=== PATIENT | female | born 1995 | race Caucasian/White ===

== ENCOUNTER 2018-10-02 13:43 | Observation (INO) | payer OTHER ==
[2018-10-02 15:04] LABS: ABS Basophils 0.1 10^3/ul (0-0.2); ABS Eosinophils 0.2 10^3/ul (0-0.6); ABS Lymphocytes 2.8 10^3/ul (1.0-4.8); ABS Neutrophils 8.3 10^3/ul (1.5-7.7); Eosinophil % 1.6 %; Hematocrit 34 % (35-47); Hemoglobin 11.7 g/dL (12.0-16.0); Lymphocyte % 22.6 %; Mean Corpuscular HGB Conc 35 g/dL (31-36); Mean Corpuscular Hemoglobin 31 pg (27-31); Mean Corpuscular Volume 91 fL (80-97); Mean Platelet Volume 8.5 fL (7.4-10.4); Platelet Count 207 10^3/uL (150-450); Red Blood Count 3.72 10^6 /uL (3.70-4.87); Red Cell Distribution Width 13 % (10-15); White Blood Count 12.3 10^3/uL (3.5-10.8)
[2018-10-02 15:22] LABS: Albumin 3.6 g/dL (3.2-5.2); Albumin/Globulin Ratio 1.4 (1-3); BUN/Creatinine Ratio 11.4 (8-20); Calcium 8.8 mg/dL (8.6-10.3); EGFR African American 95.5 (>60); EGFR Non-African American 78.9 (>60); Globulin 2.5 g/dL (2-4); Potassium 4.5 mmol/L (3.5-5.0); Total Bilirubin 0.3 mg/dL (0.2-1.0); Total Protein 6.1 g/dL (6.4-8.9)
[2018-10-02] MEDS ORDERED: NS 0.9% 1000 ML** 1,000 ML IV ONE (15:30)
[2018-10-02 16:43] LABS: TSH (Thyroid Stimulating Horm) 3.46 mcIU/mL (0.34-5.60)
--- NOTE | 2018-10-02 17:14 | ED ---
Syncope/Near Syncope - HPI Summary HPI Summary: Patient is a 22-year-old female presenting to the ED from the [facility] with a syncopal episode. Patient states over the past 2 weeks, she has been experiencing dizziness and weakness. Since that time, the [facility] has been checking her blood pressure and heart rate, both of which have been persistently low daily. She is currently on gabapentin, Suboxone 8mg, citalopram, guanfacine, NAC, Zisperidone, hydroxyzine, trazodone and buspar. She states she's been on several of these medications for years and a few the medications, she began only 4 months ago, with NAC starting 1 mos ago. He states she's never had side effects of her medications. She denies any abdominal pain, chest pain, shortness of breath. Denies any cardiac history. She does have a history of bipolar disorder, depression and insomnia. 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 She states she has been clean for "almost one month." She denies any alcohol use. She states over the past 2 weeks she has felt as though she was about to syncopize, with dizziness and fatigue, however the center refused to send her to the ED or change her medications. - History Of Current Complaint Chief Complaint: EDDizziness Time Seen by Provider: 10/02/18 13:51 Hx Obtained From: Patient Onset/Duration: Gradual Onset Timing: Constant Associated Head Trauma: No Aggravating Factor(s): Nothing Alleviating Factor(s): Nothing - Risk Factors Cardiac Risk Factors: Negative Dysrhythmia Risk Factors: Negative Risk Factor(s): Negative - Allergies/Home Medications Allergies/Adverse Reactions: Allergies Allergy/AdvReac Type Severity Reaction Status Date / Time lamotrigine [From Lamictal] Allergy Hives Verified 10/02/18 13:57 PMH/Surg Hx/FS Hx/Imm Hx Previously Healthy: Yes - Immunization History Hx Pertussis Vaccination: No Immunizations Up to Date: Yes Infectious Disease History: No Infectious Disease History: Denies: Traveled Outside the [place] in Last 30 Days - Social History Occupation: Unemployed Lives: Alone - at treatment center Alcohol Use: None Hx Substance Use: No Substance Use Type: Reports: None Substance Use Comment - Amount & Last Used: in rehabb Hx Tobacco Use: Yes Smoking Status (MU): Former Smoker Review of Systems Positive: Fatigue. Negative: Fever, Chills, Skin Diaphoresis Negative: Palpitations, Chest Pain Negative: Shortness Of Breath, Cough Positive: no symptoms reported, see HPI Negative: Rash, Bruising Positive: Weakness, Syncope Psychological: Normal All Other Systems Reviewed And Are Negative: Yes Physical Exam - Summary Physical Exam Summary: Patient appears very fatigued and is difficult to arouse. Once aroused, patient is able to answer questions appropriately, however mid sentence, patient will follow asleep and will need to be re-aroused. Patient is pleasant. Triage Information Reviewed: Yes Vital Signs On Initial Exam: Initial Vitals Temp Pulse Resp BP Pulse Ox 98.1 F 43 16 96/50 97 10/02/18 13:49 10/02/18 13:49 10/02/18 13:49 10/02/18 13:49 10/02/18 13:49 Vital Signs Reviewed: Yes Appearance: Positive: Well-Appearing, Well-Nourished Skin: Positive: Warm, Skin Color Reflects Adequate Perfusion Head/Face: Positive: Normal Head/Face Inspection Eyes: Positive: EOMI, Conjunctiva Clear Neck: Positive: Supple, No Lymphadenopathy Respiratory/Lung Sounds: Positive: Clear to Auscultation, Breath Sounds Present Cardiovascular: Positive: RRR, Pulses are Symmetrical in both Upper and Lower Extremities Musculoskeletal: Positive: Normal Neurological: Positive: Sensory/Motor Intact, Speech Normal Psychiatric: Positive: Affect/Mood Appropriate AVPU Assessment: Alert Diagnostics - Vital Signs Vital Signs Temp Pulse Resp BP Pulse Ox 10/02/18 16:51 47 10 113/61 95 10/02/18 16:39 47 13 98/62 95 10/02/18 16:00 46 15 96 10/02/18 15:52 52 12 103/54 95 10/02/18 15:22 12 108/62 10/02/18 15:00 42 10 94 10/02/18 14:52 42 12 119/67 93 10/02/18 14:30 10 10/02/18 14:29 41 16 10/02/18 14:22 10 113/56 10/02/18 13:49 98.1 F 43 16 96/50 97 - Laboratory Lab Results: Lab Results 10/02/18 10/02/18 10/02/18 Range/Units 14:44 14:44 14:44 WBC 12.3 H (3.5-10.8) 10^3/uL RBC 3.72 (3.70-4.87) 10^6 /uL Hgb 11.7 L (12.0-16.0) g/dL Hct 34 L (35-47) % MCV 91 (80-97) fL MCH 31 (27-31) pg MCHC 35 (31-36) g/dL RDW 13 (10-15) % Plt Count 207 (150-450) 10^3/uL MPV 8.5 (7.4-10.4) fL Neut % (Auto) 67.2 % Lymph % (Auto) 22.6 % [place] % (Auto) 8.0 % Eos % (Auto) 1.6 % Baso % (Auto) 0.6 % Absolute Neuts (auto) 8.3 H (1.5-7.7) 10^3/ul Absolute Lymphs (auto) 2.8 (1.0-4.8) 10^3/ul Absolute Monos (auto) 1.0 H (0-0.8) 10^3/ul Absolute Eos (auto) 0.2 (0-0.6) 10^3/ul Absolute Basos (auto) 0.1 (0-0.2) 10^3/ul Absolute Nucleated RBC 0.0 10^3/ul Nucleated RBC % 0.0 Sodium 141 (135-145) mmol/L Potassium 4.5 (3.5-5.0) mmol/L Chloride 110 (101-111) mmol/L Carbon Dioxide 25 (22-32) mmol/L Anion Gap 6 (2-11) mmol/L BUN 10 (6-24) mg/dL Creatinine 0.88 (0.51-0.95) mg/dL Est GFR ( Amer) 95.5 (>60) Est GFR (Non-Af Amer) 78.9 (>60) BUN/Creatinine Ratio 11.4 (8-20) Glucose 99 (70-100) mg/dL Lactic Acid 0.9 (0.5-2.0) mmol/L Calcium 8.8 (8.6-10.3) mg/dL Magnesium 2.0 (1.9-2.7) mg/dL Total Bilirubin 0.30 (0.2-1.0) mg/dL AST 16 (13-39) U/L ALT 17 (7-52) U/L Alkaline Phosphatase 42 (34-104) U/L Troponin I 0.00 (<0.04) ng/mL Total Protein 6.1 L (6.4-8.9) g/dL Albumin 3.6 (3.2-5.2) g/dL Globulin 2.5 (2-4) g/dL Albumin/Globulin Ratio 1.4 (1-3) TSH 3.46 (0.34-5.60) mcIU/mL Result Diagrams: 10/02/18 14:44 10/02/18 14:44 Lab Statement: Any lab studies that have been ordered have been reviewed, and results considered in the medical decision making process. Course/Dx Course Of Treatment: During this course of treatment, the patient's evaluated for syncopal episode and fatigue over the past 2 weeks. Her syncopal episode was just today, however she has been feeling weak and dizzy over the past 2 weeks. She believes this has to do with her medications, but is unsure. She denies any cardiac symptoms including chest pain or shortness of breath. EKG obtained which shows sinus bradycardia at 40. This was rechecked with another EKG which was at 40 bpm. Pressures are soft, but not as low as they have been documented over the past 2 weeks at the [facility]. Troponin 0.00. Chest x-ray shows a possible lingual consolidation. Patient states she has been afebrile, no sweats or chills, no nausea or vomiting. Discussed case with Dr. Lechuga who agrees to admit for further evaluation of her medication list and symptoms. - Diagnoses Differential Diagnosis/HQI/PQRI: Positive: Other - Medication reaction, overdose Provider Diagnoses: Syncope, Fatigue, Weakness, Hypotension - Physician Notifications Discussed Care of Patient With: Zackery Lechuga Instructed by Provider To: Admit As Inpatient Discharge - Sign-Out/Discharge Documenting (check all that apply): Patient Departure Patient Received Moderate/Deep Sedation with Procedure: No - Discharge Plan Condition: Good Disposition: ADMITTED TO [facility] Referrals: No Primary Care Phys,NOPCP [Primary Care Provider] - - Billing Disposition and Condition Condition: GOOD Disposition: Admitted to [facility]
[2018-10-02] MEDS ORDERED: Al Hydrox/Mg Hydrox/Simet LIQ* 30 ML UDC PO PRN (17:43)
[2018-10-02] MEDS ORDERED: Magnesium Hydroxide LIQ* 30 ML UDC PO PRN (17:43)
[2018-10-02] MEDS ORDERED: Acetaminophen TAB* 325 MG PO PRN (17:43)
[2018-10-02] MEDS ORDERED: Magnesium CITRATE* 300 ML BTL PO PRN (17:53)
[2018-10-02] MEDS ORDERED: Ibuprofen TAB* 400 MG PO PRN (17:53)
[2018-10-02] MEDS ORDERED: hydrOXYzine HCL TAB* 25 MG PO PRN (17:53)
[2018-10-02 18:16] LABS: Urine Appearance Clear; Urine Bacteria Absent (Absent); Urine Bilirubin Negative (Negative); Urine Blood Negative (Negative); Urine Color Yellow; Urine Glucose Negative (Negative); Urine Ketones Negative (Negative); Urine Nitrite Negative (Negative); Urine Protein Negative (Negative); Urine Red Blood Cell Trace(0-2/hpf) (Absent); Urine Specific Gravity 1.006 (1.010-1.030); Urine Squamous Epithelial Cell Present (Absent); Urine Urobilinogen Negative (Negative); Urine White Blood Cell Trace(0-5/hpf) (Absent)
[2018-10-02 18:34] LABS: Urine Benzodiazepine Screen None Detected (None Detect); Urine Opiates Screen None Detected (None Detect)
--- NOTE | 2018-10-02 20:03 | HP ---
ADDENDUM NOW INCLUDED ON THIS REPORT HISTORY AND PHYSICAL: DATE OF ADMISSION: 10/02/18 PRIMARY CARE PROVIDER: The patient currently has no primary care provider, but is receiving care at [facility]. ATTENDING PHYSICIAN: Dr. Maribell Pinon * (dictated by Artem Perkins, FLAQUITA). CHIEF COMPLAINT: 1. Syncope. 2. Hypotension. 3. Bradycardia. HISTORY OF PRESENT ILLNESS: Ms. Oglesby is a 22-year-old female with a past medical history significant for substance abuse, who presented to the emergency department today after a syncopal episode at [facility]. The patient reports that for approximately 2 weeks her providers at [facility] and her prior [facility] had been noting low BPs. She said around the same time she started to feel increasing nausea, sleepiness, and hunger. The patient reports that the symptoms have gradually worsened since their onset and culminated today with a full syncopal episode. The patient reports she has had multiple near syncopal episodes prior to today's syncopal episode. It should be noted that the patient was in the [facility] for approximately 1 week prior to being transferred to [facility], where she has been for 9 to 10 days. The patient reports that she was in her normal state of health until about a week and a half ago when these symptoms started. The patient reports that she has had no fevers, decrease in appetite, chest pain, edema, cough, shortness of breath, diarrhea, abdominal pain, dysuria, hematuria, URI symptoms , arthralgias or myalgias, rashes or lesions. She reports that she has had headaches during near syncopal episode. In addition, she has generalized weakness and visual clouding when changing positions, once again when she is having near syncopal episode. The patient attributes all these symptoms to the start of several new medications, which were started when she was transferred to [facility]. Specifically, the patient was started on Mucomyst, Tenex, clonidine approximately 9 days ago. She reports she was having lower BPs; therefore, they started midodrine and salt tabs. When asked why they started Intuniv in addition to her other medications, she was unsure. When asked why they started clonidine, she reports that she asked for trazodone as that is what she normally takes, but the provider ordered trazodone and clonidine. She reports that midodrine and salt tabs were given approximately 5 days ago when she was having some low BPs. While here in the emergency room, the patient has had EKGs, which have revealed sinus bradycardia in the 40s. The patient has also had some hypotension with a systolic as low as 96. The patient has been visibly drowsy. The patient has had labs, which have been fairly unremarkable except for a slightly elevated WBC at 12.3 and a slightly low H and H at 11.7 and 34. Given the patient's symptomatic bradycardia and hypotension, the hospitalists were asked to consult for admission. PAST MEDICAL HISTORY: Substance abuse. PAST SURGICAL HISTORY: None. HOME MEDICATIONS: 1. Tenex 1 mg p.o. daily, started approximately 9 days ago. 2. Acetylcysteine (NAC) 600 mg p.o. 4 times daily, started approximately 9 days ago. 3. BuSpar 30 mg p.o. b.i.d., started in April 2018. 4. Geodon 40 mg p.o. daily, started in April 2018. 5. Trazodone 100 mg at bedtime, started in April 2018. 6. Suboxone 2 mg/0.5 mg sublingual tab, 3 films sublingual daily, started approximately 2 months ago. 7. Nicotine patch 20 mg/24 hours, 1 patch transdermally daily. 8. Multivitamin. 9. Mag citrate 300 mg p.o. daily p.r.n. 10. Clonidine 0.1 mg p.o. b.i.d. p.r.n., started approximately 9 days ago. 11. Hydroxyzine 50 mg p.o. 4 times daily p.r.n., started in April 2018. 12. Melatonin 1 to 4 tabs p.o. q.p.m. p.r.n., unknown start date. 13. Ibuprofen 400 mg p.o. q.4 hours p.r.n. 14. Tylenol 650 mg p.o. q.4 hours p.r.n. 15. Sodium chloride tabs 0.5 g p.o. t.i.d., started 5 days ago. 16. Debrox 6.5% otic 3 drops both ears q.p.m. 17. Midodrine 2.5 mg p.o. t.i.d., started 5 days ago. 18. Celexa 40 mg p.o. daily, started in April 2018. 19. Gabapentin 300 mg p.o. b.i.d., started in April 2018. ALLERGIES: LAMOTRIGINE. FAMILY HISTORY: The patient reports her family is healthy with the exception of her grandmother, who had diabetes and cardiac bypass surgery. She denies family history of cancer. SOCIAL HISTORY: The patient is a former smoker. She quit approximately 1 month ago. The patient does not drink alcohol. The patient has a history of substance abuse, specifically meth, cocaine, and heroin. The patient reports she has been clean for 25 days. The patient currently lives at [facility]. The patient is not . The patient has 1 child. REVIEW OF SYSTEMS: A 14-point review of systems was performed and all pertinent positive findings are in the HPI. All others were negative. PHYSICAL EXAMINATION GENERAL: Ms. Oglesby is a 22-year-old female, who is lying in bed. Appears to be in no acute distress. Appears stated age. VITAL SIGNS: Temp 98.1, HR 46, RR 11, O2 saturation 97% on room air, BP 112/71. HEENT: EOMs intact. PERRLA. Oral mucosa is moist without lesions. Posterior pharynx is clear. NECK: Supple. No lymphadenopathy. RESPIRATORY: Symmetrical chest expansion. No accessory muscle use. Lungs are clear to auscultation. No rhonchi, wheezes, or rales. CARDIAC: Irregular rate and rhythm. S1, S2 present. No murmurs, rubs, or gallops. ABDOMEN: Soft, nontender. Bowel sounds normoactive. EXTREMITIES: Skin is warm and smooth bilaterally. No edema. No clubbing or cyanosis. Pedal pulses 2+ bilaterally. MUSCULOSKELETAL: Full range of motion. No pain or deformities. NEURO: The patient is awake, alert, and oriented x4. Cranial nerves II through XII are grossly intact. Motor strength is 5/5 in the upper and lower extremities. SKIN: Grossly intact without lesions. DIAGNOSTIC STUDIES/LAB DATA: WBC 12.3, hemoglobin 11.7, hematocrit 34, platelets 207. Sodium 141, potassium 4.5, chloride 110, carbon dioxide 25, BUN 10, creatinine 0.88, lactic acid 0.9, magnesium 2.0. TSH 3.46. Chest x-ray, impression: Question linear infiltrate. There is likely dermal piercing left breast. EKG, impression: Sinus maxim. Rate 47. No ST changes. ASSESSMENT AND PLAN: Ms. Oglesby is a 22-year-old female with past medical history significant for substance abuse, who presented to the emergency department today with complaints of syncope and was found to be bradycardic and hypotensive. The patient will be placed on observation. 1. Syncope. On the differential includes dehydration, infection, cardiac in origin, polypharmacy. The patient does not appear dehydrated based on her labs and assessment. The patient does have little elevated white count at 12.3, but her chest x-ray is fairly unremarkable and we are awaiting urinalysis. She has no urinary symptoms. The patient has no cardiac history and has an EKG that revealed sinus bradycardia with no ST changes. She has had initial trop of 0.00 here in the emergency room. Cardiac origin is lower in my suspicion, but if the patient's symptoms continue, I would recommend an echocardiogram and further cardiology evaluation. Polypharmacy is higher on the differential as the patient was started on multiple medications 9 days ago and started having symptoms and was later placed on additional medications to treat those symptoms. Given this, I am going to hold all medications started within the past 2-week period and monitor the patient accordingly. That includes holding acetylcysteine, Tenex, clonidine, midodrine, salt tabs. 2. Bradycardia. Once again, I suspect the patient's bradycardia is secondary to medications as these symptoms started shortly after new medications were initiated. These medications have been held. If the patient's symptoms continue , I would recommend further cardiac evaluation. The patient will be placed on tele. The patient will have repeat EKG in the morning. 3. Substance abuse. The patient has a history of meth, cocaine, heroin use. The patient has been clean for 25 days. We will continue the patient's Suboxone. I am holding the patient's acetylcysteine even though this has been prescribed to prevent cocaine relapse. I am holding this medication as it is one of the new medications that she has been placed on that carries a potential side effect of hypotension. At discharge, the patient can return to [facility]. 4. FEN: The patient has been placed on a regular diet. Given her hypotension and bradycardia, I have also continued IV fluid hydration in the form of normal saline. 5. Code status: The patient is a full code. 6. DVT prophylaxis: Based on the patient's DVT Risk Assessment, she is low risk. I have ordered ambulation 4 times daily and sequential compression devices. TIME SPENT: Approximately 65 minutes was spent on this admission, greater than half the time was spent with the patient obtaining my history, performing physical exam, and reviewing my plan of care. The case has been reviewed with my attending, Dr. Pinon, who is in agreement with my plan of care. ARTEM PERKINS NP ADDENDUM: It should also be mentioned that I have decreased the patient's trazodone from 100 mg p.o. at bedtime to 50 mg p.o. at bedtime, and the patient's hydroxyzine from 50 mg p.o. 4 times a day p.r.n. to 25 mg b.i.d. p.r.n. ARTEM PERKINS NP [id number]/CPS #: [id number] [id number]/CPS #: [id number] JOHN
--- NOTE | 2018-10-02 20:11 | HP ---
HISTORY AND PHYSICAL: ADDENDUM: It should also be mentioned that I have decreased the patient's trazodone from 100 mg p.o. at bedtime to 50 mg p.o. at bedtime, and the patient' s hydroxyzine from 50 mg p.o. 4 times a day p.r.n. to 25 mg b.i.d. p.r.n. ARTEM PERKINS, MACHINE [employer]LECTRICIAN [id number]/[facility] #: [id number] [facility]
[2018-10-02] MEDS: Nicotine Patch Removal NOTE PATCH OFF SCH (21:44)
[2018-10-02] MEDS: traZODone TAB* 50 MG TAB PO SCH (21:44)
[2018-10-02] MEDS: Gabapentin CAP(*) 300 MG PO SCH (21:44)
[2018-10-02] MEDS: busPIRone TAB* 15 MG PO SCH (21:44)
[2018-10-02] MEDS: NS 0.9% 1000 ML** 1,000 ML IV SCH (21:45)
[2018-10-03] MEDS: Nicotine PATCH 21 MG/24 HR* PATCH TRANSDERM SCH (07:36)
[2018-10-03] MEDS: Citalopram TAB* 40 MG PO SCH (07:36)
[2018-10-03] MEDS: Buprenorp/Nalox 2-0.5 MG SL TAB SL SCH (07:36)
[2018-10-03] MEDS: busPIRone TAB* 15 MG PO SCH ×2 (07:36→20:03)
[2018-10-03] MEDS: Gabapentin CAP(*) 300 MG PO SCH ×2 (07:36→20:01)
[2018-10-03] MEDS: Prenatal Vitamin TAB PO SCH (07:36)
[2018-10-03] MEDS: NS 0.9% 1000 ML** 1,000 ML IV SCH ×2 (07:45→18:38)
--- NOTE | 2018-10-03 11:26 | PN ---
Subjective Date of Service: 10/03/18 Interval History: Patient seen and examined. Requested shower this am. BP with slow improvement, no dizziness noted today. HR remains bradycardic but also improved. Denies headache, no dizziness, no SOB, no syncope since admission. Objective Active Medications: Acetaminophen (Tylenol Tab*) 650 mg PO Q4H PRN PRN Reason: FEVER/PAIN Al Hydrox/Mg Hydrox/Simethicone (Maalox Plus*) 30 ml PO Q6H PRN PRN Reason: INDIGESTION Buprenorphine/Naloxone (Suboxone 2-0.5 Mg Sl Tab*) 3 each SL DAILY [facility] Last Admin: 10/03/18 07:36 Dose: 3 each Buspirone HCl (Buspar Tab *) 30 mg PO BID [facility] Last Admin: 10/03/18 07:36 Dose: 30 mg Citalopram Hydrobromide (Celexa Tab*) 40 mg PO DAILY [facility] Last Admin: 10/03/18 07:36 Dose: 40 mg Gabapentin (Neurontin Cap(*)) 300 mg PO BID [facility] Last Admin: 10/03/18 07:36 Dose: 300 mg Hydroxyzine HCl (Atarax Tab*) 25 mg PO BID PRN PRN Reason: ANXIETY Sodium Chloride (Ns 0.9% 1000 Ml) 1,000 mls @ 100 mls/hr IV PER RATE [facility] Last Admin: 10/03/18 07:45 Dose: 100 mls/hr Ibuprofen (Motrin Tab*) 400 mg PO Q4H PRN PRN Reason: PAIN Magnesium Citrate (Citrate Of Magnesia*) 300 ml PO DAILY PRN PRN Reason: CONSTIPATION Magnesium Hydroxide (Milk Of Magnesia Liq*) 30 ml PO Q4H PRN PRN Reason: CONSTIPATION Multivitamins ( Vitamin Tab*) 1 tab PO DAILY [facility] Last Admin: 10/03/18 07:36 Dose: 1 tab Nicotine (Nicotine Patch 21 Mg/24 Hr*) 1 patch TRANSDERM DAILY [facility] Last Admin: 10/03/18 07:36 Dose: 1 patch Pharmacy Profile Note (Nicotine Patch Removal Note*) 1 note PATCH OFF 2100 [facility] Last Admin: 10/02/18 21:44 Dose: Not Given Throat Lozenges (Chloraseptic Alivia*) 1 alivia PO Q6H PRN PRN Reason: COUGH Trazodone HCl (Desyrel Tab*) 50 mg PO BEDTIME ALEXA Last Admin: 10/02/18 21:44 Dose: 50 mg Vital Signs - 8 hr 10/03/18 10/03/18 10/03/18 03:52 07:36 09:15 Temperature 98.1 F Pulse Rate 61 86 Respiratory 14 20 Rate Blood Pressure 120/63 83/35 (mmHg) O2 Sat by Pulse 97 Oximetry 10/03/18 09:16 Temperature 98.3 F Pulse Rate 85 Respiratory 16 Rate Blood Pressure 106/64 (mmHg) O2 Sat by Pulse 99 Oximetry Oxygen Devices in Use Now: None Appearance: alert, NAD Eyes: No Scleral Icterus, PERRLA Ears/Nose/Mouth/Throat: NL Teeth, Lips, Gums, Mucous Membranes Moist Neck: NL Appearance and Movements; NL JVP, Trachea Midline Respiratory: Symmetrical Chest Expansion and Respiratory Effort, Clear to Auscultation Cardiovascular: NL Sounds; No Murmurs; No JVD, No Edema, - - regular, maxim on tele Abdominal: NL Sounds; No Tenderness; No Distention Skin: No Rash or Ulcers Neurological: Alert and Oriented x 3, NL Sensation, NL Gait Nutrition: Taking PO's Result Diagrams: 10/02/18 14:44 10/02/18 14:44 Additional Lab and Data: Lab Results 10/02/18 10/02/18 10/02/18 Range/Units 14:44 14:44 14:44 WBC 12.3 H (3.5-10.8) 10^3/uL RBC 3.72 (3.70-4.87) 10^6 /uL Hgb 11.7 L (12.0-16.0) g/dL Hct 34 L (35-47) % MCV 91 (80-97) fL MCH 31 (27-31) pg MCHC 35 (31-36) g/dL RDW 13 (10-15) % Plt Count 207 (150-450) 10^3/uL MPV 8.5 (7.4-10.4) fL Neut % (Auto) 67.2 % Lymph % (Auto) 22.6 % [place] % (Auto) 8.0 % Eos % (Auto) 1.6 % Baso % (Auto) 0.6 % Absolute Neuts (auto) 8.3 H (1.5-7.7) 10^3/ul Absolute Lymphs (auto) 2.8 (1.0-4.8) 10^3/ul Absolute Monos (auto) 1.0 H (0-0.8) 10^3/ul Absolute Eos (auto) 0.2 (0-0.6) 10^3/ul Absolute Basos (auto) 0.1 (0-0.2) 10^3/ul Absolute Nucleated RBC 0.0 10^3/ul Nucleated RBC % 0.0 Sodium 141 (135-145) mmol/L Potassium 4.5 (3.5-5.0) mmol/L Chloride 110 (101-111) mmol/L Carbon Dioxide 25 (22-32) mmol/L Anion Gap 6 (2-11) mmol/L BUN 10 (6-24) mg/dL Creatinine 0.88 (0.51-0.95) mg/dL Est GFR ( Amer) 95.5 (>60) Est GFR (Non-Af Amer) 78.9 (>60) BUN/Creatinine Ratio 11.4 (8-20) Glucose 99 (70-100) mg/dL Lactic Acid 0.9 (0.5-2.0) mmol/L Calcium 8.8 (8.6-10.3) mg/dL Magnesium 2.0 (1.9-2.7) mg/dL Total Bilirubin 0.30 (0.2-1.0) mg/dL AST 16 (13-39) U/L ALT 17 (7-52) U/L Alkaline Phosphatase 42 (34-104) U/L Troponin I 0.00 (<0.04) ng/mL Total Protein 6.1 L (6.4-8.9) g/dL Albumin 3.6 (3.2-5.2) g/dL Globulin 2.5 (2-4) g/dL Albumin/Globulin Ratio 1.4 (1-3) TSH 3.46 (0.34-5.60) mcIU/mL Assess/Plan/Problems-Billing Assessment: This is a 22 year old female with history of polysubstance abuse that presented to the ER from [facility] with report of multiple syncopal events. - Patient Problems (1) Syncope and collapse Code(s): R55 - SYNCOPE AND COLLAPSE SNOMED Code(s): 601113116 Comment: - Witnessed events after initiation of multiple new medications while at inpatient rehab facility - EKG shows bradycardia with no arrhythmias; telemetry monitoring with no changes - BP low but stable, mild orthostasis - Etiology likely polypharmacy, will consult psychiatry for medication recommendations before discharge back to facility, as patient is on multiple medications that can cause hypotension, syncope and bradycardia, in particular placing the patient on Tenex and clonidine with midodrine is counterintuitive. Geodon and trazodone can also cause syncope. (2) Substance abuse Code(s): F19.10 - OTHER PSYCHOACTIVE SUBSTANCE ABUSE, UNCOMPLICATED SNOMED Code(s): 39746850 Comment: - Currently on suboxone, continue at current dose Status and Disposition: Obs, discharge back to rehab when medically stable.
[2018-10-03] MEDS: Benzocaine/Menthol LOZ* 1 LOZENGE PO PRN ×2 (13:28→19:34)
[2018-10-03] MEDS: hydrOXYzine HCL TAB* 25 MG PO SCH ×3 (16:36→23:57)
[2018-10-03 18:31] LABS: ABS Eosinophils 0.2 10^3/ul (0-0.6); ABS Lymphocytes 2.1 10^3/ul (1.0-4.8); ABS Monocytes 0.5 10^3/ul (0-0.8); ABS Neutrophils 5.2 10^3/ul (1.5-7.7); Eosinophil % 2.4 %; Hematocrit 33 % (35-47); Hemoglobin 11.5 g/dL (12.0-16.0); Lymphocyte % 26.6 %; Mean Corpuscular HGB Conc 35 g/dL (31-36); Mean Corpuscular Hemoglobin 32 pg (27-31); Mean Corpuscular Volume 91 fL (80-97); Mean Platelet Volume 8.2 fL (7.4-10.4); Platelet Count 198 10^3/uL (150-450); Red Blood Count 3.62 10^6 /uL (3.70-4.87); Red Cell Distribution Width 13 % (10-15); White Blood Count 8.1 10^3/uL (3.5-10.8)
[2018-10-03 18:48] LABS: BUN/Creatinine Ratio 11.9 (8-20); Calcium 8.5 mg/dL (8.6-10.3); EGFR African American 100.8 (>60); EGFR Non-African American 83.3 (>60)
[2018-10-03] MEDS: traZODone TAB* 50 MG TAB PO SCH (20:01)
[2018-10-03] MEDS: Nicotine Patch Removal NOTE PATCH OFF SCH (20:03)
[2018-10-04] MEDS: NS 0.9% 1000 ML** 1,000 ML IV SCH (06:33)
[2018-10-04] MEDS: Prenatal Vitamin TAB PO SCH (07:54)
[2018-10-04] MEDS: hydrOXYzine HCL TAB* 25 MG PO SCH (07:54)
[2018-10-04] MEDS: Gabapentin CAP(*) 300 MG PO SCH (07:54)
[2018-10-04] MEDS: Citalopram TAB* 40 MG PO SCH (07:54)
[2018-10-04] MEDS: busPIRone TAB* 15 MG PO SCH (07:54)
[2018-10-04] MEDS: Buprenorp/Nalox 2-0.5 MG SL TAB SL SCH (07:55)
[2018-10-04] MEDS: Nicotine PATCH 21 MG/24 HR* PATCH TRANSDERM SCH (07:55)
[2018-10-04 08:12] VITALS: BP 100/54
--- NOTE | 2018-10-04 11:56 | DS ---
CC: [facility] * DATE OF ADMISSION: 10/02/2018. DATE OF DISCHARGE: 10/04/2018. PRIMARY CARE PHYSICIAN: [facility]. MY ATTENDING PHYSICIAN: Dr. Anastasiya Ramirez * (dictated by Lisa Edwards NP). HOSPITAL COURSE: Please refer to admitting history and physical on 10/02/2018. In short, Ms. Oglesby is a 22-year-old female with a history of substance abuse who is residing at the [facility] for rehabilitation when she reported several days of weakness and dizziness. The patient states that she had been noted to have some low blood pressures and she had associated her low blood pressure with starting some new medications. She did raise some concerns with her providers there; however, no changes were made in her medications. She did have then two episodes of syncope. The patient was brought to the emergency department for evaluation after syncopizing at her facility. In the emergency department, she was found to be profoundly bradycardic with heart rates in the 40s systolic, blood pressures in the 80s with some orthostatic hypotension and some drowsiness. Labs were for the most part unremarkable and within normal limits. She did have a mild leukocytosis, but other labs were normal. She was admitted to observation for symptomatic hypotension and syncope. She was given fluid boluses of normal saline. Upon evaluation of her medication profile, she was noted to have several medications to cause hypotension and syncope. These medications were held. She was kept in observation for a washout of these medications. In order to support her blood pressure, she was maintained on telemetry where she did remain bradycardic. However, her heart rate did begin to normalize and her blood pressure, although low which is probably her baseline did come back to an acceptable range. The patient's IV fluids were discontinued on the morning of 10/04/2018. I also did have a discussion with our psychiatrist, Dr. Ashby, in a curbside consult regarding the extensive amount of medication that she had been started on in the last nine day prior to her admission. Dr. Ashby and I were in agreement that purely from a medical perspective, most of the medications that had recently been started on her are likely not recommended given a patient who probably has baseline low blood pressure; most of these medications can cause hypotension and syncope and are probably not safe for this patient. The patient did do very well and is feeling back to baseline. REVIEW OF SYSTEMS TODAY: She denies any dizziness, fever, fatigue, or headache. No chest pain, no shortness of breath. No nausea, no vomiting. No urinary complaints. No arthralgias or myalgias and no further constitutional complaints. PHYSICAL EXAMINATION TODAY: Reveals a well-appearing woman in no acute distress. Vital Signs: Blood pressure 100/54, heart rate 70, O2 saturation 94 percent on room air, respiratory rate 16, temperature 98.2. HEENT: Patient is atraumatic, normocephalic. PERRLA. Nonicteric sclerae. Oral mucosa is moist. Tongue is midline. Neck: Supple, nontender. No JVD noted. No carotid bruit auscultated. Cardiovascular: S1, S2 present. No murmurs, gallops, or rubs noted. Lungs: Clear bilaterally to auscultation with no wheezing, rhonchi , or rales. Abdomen: Soft, nontender, nondistended. Positive bowel sounds all four quadrants. : Deferred. Musculoskeletal: There is no clubbing, no cyanosis, and no edema. She has +2 distal pulses palpable. Brisk cap refill. Full range of motion and steady gait. Neurologic: Grossly intact with no focal deficits. Psychiatric: She is cooperative and appropriate. LABORATORY DATA: WBC 8.1, RBC 3.62, hemoglobin 11.5, hematocrit 33, platelets 198; sodium 141, potassium 4.0, chloride 109, CO2 26, BUN 10, creatinine 0.84, GFR 83.3, glucose 101, lactic acid 0.9, calcium 8.5, magnesium 2.0, bilirubin 0.30, AST 16, ALT 17, alk phos 42, troponin 0.00, total protein 6.1, albumin 3.6 , globulin 2.5, albumin globulin ratio 1.4, TSH 3.46. Urinalysis was negative for any acute infected process. Urine tox screen was negative. IMAGING: Chest x-ray dated 10/02/2018 shows essentially clear lungs. There was a questionable lingular infiltrate on the left, but otherwise normal lungs. EKG: Initial EKG at admission was heart rate in the 40s, sinus bradycardia with some PAC's. Repeat EKG on 10/03/2018 shows a heart rate of 57 to 60, still sinus maxim, PAC's are now absent. DISCHARGE DIAGNOSES: 1. Syncope and collapse secondary to polypharmacy. 2. History of substance abuse, stable. DISCHARGE MEDICATIONS: 1. Tylenol 650 mg p.o. q.4 hours as needed. 2. Maalox 30 ml p.o. q.6 hours as needed. 3. Trazodone 50 mg p.o. at bedtime. This is a decrease. 4. Citalopram 40 mg p.o. at bedtime. 5. Debrox otic drops three drops both ears in the evening. 6. Ibuprofen 400 mg p.o. q.4 hours as needed. 7. Melatonin 5 mg p.o. at bedtime as needed. 8. Atarax 50 mg p.o. 4 times a day as needed. 9, multivitamin one tablet daily. 10. Nicotine patch 21 mg/24 hour patch daily. 11. Suboxone 2 mg/0.5 mg sublingual film 3 films sublingual daily. 12. Gabapentin 300 mg p.o. b.i.d. 13. BuSpar 30 mg p.o. b.i.d. DISCONTINUED MEDICATIONS: 1. Tenex 1 mg p.o. daily. 2. Acetylcysteine 600 mg p.o. 4 times a day. 3. Geodon 40 mg daily. 4. Clonidine 0.1 mg p.o. b.i.d. 5. Sodium Chloride tablets 0.5 mg p.o. 3 times a day. 6. Midodrine 2.5 mg p.o. 3 times a day. 7. Magnesium Citrate 300 mg p.o. daily prn. DISPOSITION: The patient will be discharged back to [facility] facility today via a Medicaid cab. CONDITION ON DISCHARGE: She is in stable condition. RECOMMENDATIONS: I did have an extensive discussion with the patient, also based on recommendations by Dr. Ashby, that the discontinued medications above greatly effect blood pressure and that the patient would be inappropriate to be continuing on these medications. She is aware of these recommendations and we highly recommend that when she returns to the facility, she not be restarted. The only medication in question would be the Acetylcysteine, although it is a low instance of hypotension that some studies have shown that Acetylcysteine can still cause hypotension in some patients. I would suggest that if there was consideration in restarting this, I would start this medication alone at a lower dose and monitor blood pressure very closely, and any deviations in blood pressure, the medication should be stopped. However, all the other medications that were discontinued should remain discontinued for the patient's safety. ACTIVITY: Progress activity as tolerated. DIET: Regular as tolerated. TIME SPENT: 45 minutes on discharge planning. LISA EDWARDS NP [id number]/[facility] #: [id number] JOHN
== END 2018-10-04 11:36 ==
LOC: ED 13:43 → MEDTELE 17:43
PROVIDERS: ADMIT Internal Medicine; ATTEND Internal Medicine
DX: R55 Syncope and collapse (principal); F19.10 Other psychoactive substance abuse, uncomplicated; I95.9 Hypotension, unspecified; R00.1 Bradycardia, unspecified; Z87.891 Personal history of nicotine dependence; Z79.899 Other long term (current) drug therapy; R53.1 Weakness
CPT/HCPCS: 36415; 71046; 80048; 80053; 80307; 81003; 81015; 83605; 83735; 84443; 84484; 85025; 87086; 93005; 96360; 96361; 99285; A9270-GY; G0378